=== PATIENT | female | born 1950 | race Caucasian/White ===

== ENCOUNTER → 2017-04-19 | Day surgery (SDC) | payer OTHER, MEDICARE ==
[~2017-04-19] VITALS: Ht 165.1 cm; Wt 77.0 kg
[~2017-04-19] MED LIST: *morphine SULFATE 10 MG/ML PERIprocedure ONLY ONE; ACETAMINOPHEN 1000 MG/100 ML 100 ML IV ONE; BUPIVACAINE/EPINEPHRINE 0.25% 50 ML VIAL ONE; CHLORHEXIDINE GLUCONATE 2 % 1 PACK (2 CLOTHS) TOPICAL PRN; CHLORHEXIDINE GLUCONATE 4% SOLN 120 ML BTL TOPICAL SCH; DEXAMETHASONE SOD PHOS 4 MG/ML VIAL IV ONE; DO NOT ADM ANY ANTICOAGULANT DRUGS PRN; GENTAMICIN SULFATE 80 MG/2 ML VIAL ONE; HYDROmorphone HCL PF 2 MG/ML VIAL ONE; KETOROLAC TROMETHAMINE 60 MG/2 ML (IM) VIAL IM ONE; LACTATED RINGER'S 1000 ML IV PRN; LEVO100T5 PO; LIDOCAINE HCL 1% PF 5 ML SYRINGE OTHER ONE; METOPROLOL TARTRATE 25 MG TAB PO PRN; MIDAZOLAM HCL 2 MG/2 ML VIAL ONE; MORPHINE SULFATE 4 MG/ML INJ IV PUSH PRN; ONDANSETRON HCL 4 MG/2 ML VIAL IV ONE; ONDANSETRON HCL 4 MG/2 ML VIAL IV PUSH PRN; POVIDONE IODINE 5% (ANTISEPSIS KIT) 4 APPLICATIONS EACH NARE PRN; PROPOFOL 200 MG/20 ML AMP IV ONE; SODIUM CHLORID 0.9% 500 ML IV PRN; SODIUM CHLORIDE 0.9% FLUSH 10 ML FLUSH IV FLUSH PRN; SODIUM CHLORIDE 0.9% FLUSH 10 ML FLUSH IV FLUSH SCH; TRAM50TA PO; VANCOMYCIN HCL 1000 MG VIAL ONE; ZOFR4TAB3 SL; ceFAZolin 2 GM PREMIX 50 ML IV SCH; ePHEDrine/NS 25 MG/5 ML SYRINGE IV ONE; traMADol HCL 50 MG TAB PO PRN
[2017-04-19 09:34] LABS: AUTOMATED NEUTROPHIL # 5.9 TH/MM3 (1.8-7.7); BASOPHIL % 0.6 % (0.0-2.0); EOSINOPHIL # 0.2 TH/MM3 (0-0.4); HEMATOCRIT 37.8 % (35.0-46.0); LYMPHOCYTE # 1.1 TH/MM3 (1.0-4.8); MEAN CELL VOLUME 88.2 FL (80.0-100.0); MEAN CORPUSCULAR HEMOGLOBIN 30.5 PG (27.0-34.0); MEAN CORPUSCULAR HGB CONC 34.5 % (32.0-36.0); MEAN PLATELET VOLUME 7.6 FL (7.0-11.0); MONO % 6.9 % (0.0-8.0); MONOCYTE # 0.5 TH/MM3 (0-0.9); NEUT % 76.5 % (16.0-70.0); PLATELET COUNT 265 TH/MM3 (150-450); RED BLOOD COUNT 4.28 MIL/MM3 (4.00-5.30); RED CELL DISTRIBUTION WIDTH 12.9 % (11.6-17.2); WHITE BLOOD COUNT 7.7 TH/MM3 (4.0-11.0)
[2017-04-19 09:54] LABS: BICARBONATE 27.2 MEQ/L (21.0-32.0); CALCIUM 9.3 MG/DL (8.5-10.1); CREATININE 0.65 MG/DL (0.50-1.00)
[2017-04-19] MEDS: ceFAZolin INJ 1,000 MG VIAL ONE ×2 (11:12→11:14)
--- NOTE | 2017-04-19 12:34 | PD.OP ---
cc: Joy Frazier MD Operative Report Closed left displaced medial malleolus fracture Postoperative Diagnosis: Same Procedure: Open reduction internal fixation left displaced medial malleolus fracture Anesthesia: Gen. Surgeon: Joy Frazier Electronics Test Engineer(s): None Operation and Findings: EBL: Minimal Complications: None Specimens: None Indications for procedure: Patient is a 66-year-old female who sustained a trip and fall approximate 5 days prior to presentation. Patient was found to have a displaced closed left medial malleolus fracture. Options of management were discussed with the patient. Recommendation for open reduction internal fixation of her left medial malleolus fracture due to the significant displacement. Risks of surgery including but not limited to: Infection, nonunion or malunion, hardware malposition or failure, persistent ankle stiffness and or pain, neurovascular injury, possible need for further surgery, and other unforeseen consultations were all discussed with the patient. At this time she consented to the procedure. Description of procedure: Patient was brought back to the operating room and placed supine on operating table with all bony prominences well-padded. Gen. anesthesia then ensued. This was prepped and draped in standard sterile fashion. A tourniquet was placed upper thigh. A timeout was performed to identify the correct patient, side, site and procedure to be performed. Preoperative antibiotics were given within 1 hour of incision. The tourniquet was inflated to 250 mmHg. A small anterior medial incision was made directly over the fracture site and joint. Dissection was made down through the subcutaneous tissue to the fracture site. The fracture site was cleaned and mobilized. The fracture was then reduced under direct visualization and verified on AP and lateral fluoroscopy. This was held with a dental tool. Two guidewires for 4.0 mm cannulated screws were then placed from distal to proximal at the medial malleolus and into the tibia. These were verified to be in appropriate position and out of the joint on AP and lateral radiographs. These were subsequently measured, the near cortex drilled, and then placed. The fracture remained in appropriate reduction with the joint surface well reduced. The K wires were removed. Final radiograph verified good positioning of the hardware and fracture was well reduced. The wounds were irrigated with normal saline. The tourniquet was released and hemostasis achieved. The subcutaneous tissue was closed with Vicryl sutures and the skin closed with nylon. Sterile dressings were then applied and a short leg splint. Patient was then awoken from general anesthesia without complications. Disposition: Patient will be discharged home later today. Patient was instructed to remain nonweightbearing to the left lower extremity. Joy Frazier MD Apr 19, 2017 12:34
--- NOTE | 2017-04-19 12:48 | RADRPT ---
EXAM DATE/TIME: 04/19/2017 12:04 [facility] COMPARISON: No previous studies available for comparison. INDICATIONS : Post-op ORIF left medial malleolus. MEDICAL HISTORY : None. SURGICAL HISTORY : None. ENCOUNTER: Initial ACUITY: 1 day PAIN SCORE: Non-responsive. LOCATION: Left ankle. FINDINGS: 3 spot fluoroscopic images obtained in the operating room during a procedure demonstrate 2 partially threaded cancellous screws traversing the medial malleolus. Ankle mortise is intact. CONCLUSION: There are 2 medial malleolus screws. Dennis Floyd MD on April 19, 2017 at 12:44 Board Certified Radiologist. This report was verified electronically.
[2017-04-19 14:35] VITALS: BP 108/67; PULSE 67; RESP 16; TEMP 97.5; O2SAT 96
--- NOTE | 2017-04-19 23:32 | EKG ---
Date Performed: 04/19/2017 Time Performed: 08:42:03 PTAGE: 66 years EKG: Sinus rhythm ST DEVIATION AND MODERATE T-WAVE ABNORMALITY ABNORMAL ECG NO PREVIOUS TRACING DOCTOR: Cristino Gomez Interpretating Date/Time 04/19/2017 23:30:35
== END | disposition home or self-care (01) ==
LOC: HSDC 08:10
PROVIDERS: ATTEND Orthopaedic Surgery Orthopaedic Surgery of the Spine
DX: S82.52XA Displaced fracture of medial malleolus of left tibia, initial encounter for closed fracture (principal); R94.31 Abnormal electrocardiogram [ECG] [EKG]; W01.0XXA Fall on same level from slipping, tripping and stumbling without subsequent striking against object, initial encounter
CPT/HCPCS: 01480; 27766; 73610; 76000; 80048; 85025; 93005; C1713; J0131; J0690; J1100; J1170; J1580; J1885; J2250; J2270; J2405; J3010; J3370; J7120